=== PATIENT | male | born 1960 | race Caucasian/White ===

== ENCOUNTER 2018-03-19 19:50 | Emergency (ER) | payer OTHER ==
[2018-03-19] MEDS ORDERED: LIDOCAINE 2% MPF 5 ML VIAL ONE ×2 (20:20→20:56)
[2018-03-19] MEDS ORDERED: ONDANSETRON 4 MG (ODT) TAB ONE ×2 (20:28→20:57)
[2018-03-19] MEDS ORDERED: ONDANSETRON 4 MG/2 ML VIAL ONE (20:28)
--- NOTE | 2018-03-19 21:03 | RAD REPORT ---
EXAM DESCRIPTION: RAD - Shoulder Left 2 View - 03/19/2018 8:57 pm CLINICAL HISTORY: DEFORMITY COMPARISON: No comparisons FINDINGS: The glenohumeral relationship is normal. No fracture or dislocation seen. AC joint alignme nt is normal.
[2018-03-19] MEDS ORDERED: DIAZEPAM 2 MG TABLET ONE (21:09)
--- NOTE | 2018-03-19 21:11 | ER ---
Nurse's Notes [facility] Name: Destin Benites Age: 57 yrs Sex: Male : 1960 Arrival Date: 03/19/2018 Time: 19:51 Bed 13 Private MD: Kana Ozuna Diagnosis: Dislocation of other parts of left shoulder girdle;Fall on same level from slipping, tripping and stumbling Presentation: 03/19 19:55 Presenting complaint: Patient states: He was on a wet deck and slipped and landed aj1 wrong, now he is having pain to the left shoulder. Deformity noted to left shoulder. Transition of care: patient was not received from another setting of care. Onset of symptoms was March 19, 2018. Risk Assessment: Do you want to hurt yourself or someone else? Patient reports no desire to harm self or others. Initial Sepsis Screen: Does the patient meet any 2 criteria? No. Patient's initial sepsis screen is negative. Does the patient have a suspected source of infection? No. Patient's initial sepsis screen is negative. Care prior to arrival: None. 19:55 Method Of Arrival: Ambulatory aj 19:55 Acuity: WILI 3 aj1 Triage Assessment: 20:01 General: Appears uncomfortable, Behavior is cooperative, appropriate for age. Pain: aj1 Complains of pain in anterior aspect of left shoulder and posterior aspect of left shoulder Pain currently is 10 out of 10 on a pain scale. Neuro: Level of Consciousness is awake, alert, obeys commands. Cardiovascular: Patient's skin is warm and dry. Respiratory: Airway is patent Respiratory effort is even, unlabored, Respiratory pattern is regular, symmetrical. Musculoskeletal: Range of motion: limited in left shoulder. 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 - Social history:: Smoking status: Patient uses tobacco products, smokes one pack cigarettes per day. - Ebola Screening: : Patient denies travel to an Ebola-affected area in the 21 days before illness onset. Screenin:13 Abuse screen: Denies threats or abuse. Denies injuries from another. Nutritional mg2 screening: No deficits noted. Tuberculosis screening: No symptoms or risk factors identified. Fall Risk Fall in past 12 months (25 points). Assessment: 20:14 General: Appears in no apparent distress. uncomfortable. Pain: Complains of pain in mg2 left shoulder and left arm and posterior aspect of left shoulder and anterior aspect of left shoulder Pain does not radiate. Neuro: Level of Consciousness is awake, alert, obeys commands, Oriented to person, place, time, situation. Cardiovascular: Capillary refill < 3 seconds Patient's skin is warm and dry. Respiratory: Airway is patent Respiratory effort is even, unlabored, Respiratory pattern is regular, symmetrical. GI: Reports nausea. : No signs and/or symptoms were reported regarding the genitourinary system. EENT: No signs and/or symptoms were reported regarding the EENT system. Derm: Skin is intact, Skin is pink, warm \T\ dry. normal. Musculoskeletal: Circulation, motion, and sensation intact. Musculoskeletal: Injury Description: Deformity sustained to left shoulder is protruding, was sustained 30-60 minutes ago. 21:27 Reassessment: Patient appears in no apparent distress at this time. Patient and/or mg2 family updated on plan of care and expected duration. Pain level reassessed. Patient is alert, oriented x 3, equal unlabored respirations, skin warm/dry/pink. manual reduction done by Nery. Vital Signs: 20:01 BP 133 / 98; Pulse 88; Resp 18; Temp 98.2(TE); Pulse Ox 96% on R/A; Weight 89.81 kg aj1 (R); Height 6 ft. 0 in. (182.88 cm) (R); Pain 10/10; 20:37 BP 138 / 96; Pulse 89; Resp 18; Pulse Ox 100% on R/A; Pain 10/10; mg2 20:01 Body Mass Index 26.85 (89.81 kg, 182.88 cm) aj1 ED Course: 19:51 Patient arrived in ED. ds1 19:51 Kana Ozuna MD is Private Physician. ds1 19:59 Triage completed. aj1 20:01 Arm band placed on. aj1 20:04 [facility] Dodge [facility]C [facility] snw 20:04 Rayray Trejo MD is Attending Physician. snw 20:13 Dale Walter, [place] is Primary Nurse. mg2 20:16 Patient has correct armband on for positive identification. Placed in gown. Bed in low mg2 position. Call light in reach. Door closed. 20:56 X-ray completed. Portable x-ray completed in exam room. Patient tolerated procedure la2 well. 20:57 Shoulder Left (2 View) XRAY In Process Unspecified. EDMS 21:10 Conor Warner MD is Referral Physician. snw 21:26 No provider procedures requiring assistance completed. Patient did not have IV access mg2 during this emergency room visit. 21:41 Shoulder immobilizer applied on left shoulder. mg2 Administered Medications: 21:07 Drug: Zofran 4 mg Route: PO; mg2 21:26 Follow up: Response: No adverse reaction; Nausea is decreased mg2 21:07 Drug: Lidocaine (2 %) 10 mg Route: Infiltration; mg2 21:26 Follow up: Response: No adverse reaction; Pain is decreased mg2 21:07 Drug: Valium 2 mg Route: PO; mg2 21:26 Follow up: Response: No adverse reaction; Medication administered at discharge. mg2 Outcome: 21:10 Discharge ordered by . snw 21:41 Discharged to home ambulatory, with family. mg2 21:41 Condition: stable 21:41 Discharge instructions given to patient, family, Instructed on discharge instructions, follow up and referral plans. medication usage, Demonstrated understanding of instructions, follow-up care, medications, Prescriptions given X 2. 21:42 Patient left the ED. mg2 Signatures: Dispatcher [employer] EDMI Katya Washington, RN RN aj1 Nery Dodge FNP-C [employer] D[employer]ER-Csnw Claudia Arthur ds1 Jayleen Smith la2 Dale Walter, [place] RN mg2
--- NOTE | 2018-03-19 21:11 | EDPHYS ---
Physician Documentation [facility] Name: Destin Benites Age: 57 yrs Sex: Male : 1960 Arrival Date: 03/19/2018 Time: 19:51 Bed 13 Private MD: Kana Ozuna ED Physician Rayray Trejo HPI: 03/19 20:50 This 57 yrs old Male presents to ER via Ambulatory with complaints of snw Shoulder Dislocation. 20:50 Onset: The symptoms/episode began/occurred suddenly, just prior to arrival. Associated snw signs and symptoms: Pertinent positives: The patient does not have any pertinent positive signs or symptoms associated with pediatric illness. Modifying factors: The patient symptoms are alleviated by remaining still. The patient has not experienced similar symptoms in the past. The patient has not recently seen a physician. 20:50 slipped on wet deck and fell to left shoulder. 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 - Social history:: Smoking status: Patient uses tobacco products, smokes one pack cigarettes per day. - Ebola Screening: : Patient denies travel to an Ebola-affected area in the 21 days before illness onset. ROS: 20:49 Constitutional: Negative for fever, chills, and weight loss, Eyes: Negative for injury, snw pain, redness, and discharge, ENT: Negative for injury, pain, and discharge, Neck: Negative for injury, pain, and swelling, Cardiovascular: Negative for chest pain, palpitations, and edema, Respiratory: Negative for shortness of breath, cough, wheezing, and pleuritic chest pain, Abdomen/GI: Negative for abdominal pain, nausea, vomiting, diarrhea, and constipation, Back: Negative for injury and pain, : Negative for injury, bleeding, discharge, and swelling, Skin: Negative for injury, rash, and discoloration, Neuro: Negative for headache, weakness, numbness, tingling, and seizure, Psych: Negative for depression, anxiety, suicide ideation, homicidal ideation, and hallucinations. 20:49 MS/extremity: Positive for injury or acute deformity, decreased range of motion, deformity, pain. Exam: 20:46 Constitutional: This is a well developed, well nourished patient who is awake, alert, snw and in no acute distress. 20:46 Eyes: Pupils equal round and reactive to light, extra-ocular motions intact. Lids and lashes normal. Conjunctiva and sclera are non-icteric and not injected. Cornea within normal limits. Periorbital areas with no swelling, redness, or edema. ENT: Nares patent. No nasal discharge, no septal abnormalities noted. Tympanic membranes are normal and external auditory canals are clear. Oropharynx with no redness, swelling, or masses, exudates, or evidence of obstruction, uvula midline. Mucous membranes moist. Neck: Trachea midline, no thyromegaly or masses palpated, and no cervical lymphadenopathy. Supple, full range of motion without nuchal rigidity, or vertebral point tenderness. No Meningismus. Chest/axilla: Normal chest wall appearance and motion. Nontender with no deformity. No lesions are appreciated. Cardiovascular: Regular rate and rhythm with a normal S1 and S2. No gallops, murmurs, or rubs. Normal PMI, no JVD. No pulse deficits. Respiratory: Lungs have equal breath sounds bilaterally, clear to auscultation and percussion. No rales, rhonchi or wheezes noted. No increased work of breathing, no retractions or nasal flaring. Abdomen/GI: Soft, non-tender, with normal bowel sounds. No distension or tympany. No guarding or rebound. No evidence of tenderness throughout. Back: No spinal tenderness. No costovertebral tenderness. Full range of motion. Neuro: Awake and alert, GCS 15, oriented to person, place, time, and situation. Cranial nerves II-XII grossly intact. Motor strength 5/5 in all extremities. Sensory grossly intact. Cerebellar exam normal. Normal gait. Psych: Awake, alert, with orientation to person, place and time. Behavior, mood, and affect are within normal limits. 20:46 Head/face: Noted is dusky coloration. 20:46 Musculoskeletal/extremity: Extremities: grossly normal except: noted in the left shoulder: decreased ROM, deformity, anterior dislocation. 20:46 Skin: Appearance: Color: dusky. 20:46 Neuro: Exam negative for acute changes. Vital Signs: 20:01 BP 133 / 98; Pulse 88; Resp 18; Temp 98.2(TE); Pulse Ox 96% on R/A; Weight 89.81 kg aj1 (R); Height 6 ft. 0 in. (182.88 cm) (R); Pain 10/10; 20:37 BP 138 / 96; Pulse 89; Resp 18; Pulse Ox 100% on R/A; Pain 10/10; mg2 20:01 Body Mass Index 26.85 (89.81 kg, 182.88 cm) aj1 Procedures: 20:47 Reduction: of the left shoulder, using manipulation, flexion, Immobilized with shoulder snw immobilizer. Patient tolerated well. Post reduction film - reveals normal alignment. 20:48 Nerve block: of left shoulder. Medication: Lidocaine 2% without epinephrine, Amount: 10 snw mls were injected, Effect: the patient's symptoms are improved, markedly, Performed by Nery JIN Patient tolerated well. MDM: 20:04 Patient medically screened. snw 21:11 Data reviewed: vital signs, nurses notes. Data interpreted: Pulse oximetry: on room air snw is 100 %. Interpretation: normal. Counseling: I had a detailed discussion with the patient and/or guardian regarding: the historical points, exam findings, and any diagnostic results supporting the discharge/admit diagnosis, the presence of at least one elevated blood pressure reading (>120/80) during this emergency department visit, radiology results, the need for outpatient follow up, to return to the emergency department if symptoms worsen or persist or if there are any questions or concerns that arise at home. Special discussion: I have referred the patient to see his PCP for further evaluation of high blood pressure. Based on the history and exam findings, there is no indication for further emergent testing or inpatient evaluation. I discussed with the patient/guardian the need to see the orthopedic surgeon for further evaluation of the symptoms. I discussed with the patient/guardian the need to see the primary care provider for further evaluation of the symptoms. 03/19 20:42 Order name: Shoulder Left (2 View) XRAY; Complete Time: 21:12 snw Administered Medications: 21:07 Drug: Zofran 4 mg Route: PO; mg2 21:26 Follow up: Response: No adverse reaction; Nausea is decreased mg2 21:07 Drug: Lidocaine (2 %) 10 mg Route: Infiltration; mg2 21:26 Follow up: Response: No adverse reaction; Pain is decreased mg2 21:07 Drug: Valium 2 mg Route: PO; mg2 21:26 Follow up: Response: No adverse reaction; Medication administered at discharge. mg2 Disposition: 03/20 03:00 Co-signature as Attending Physician, Rayray Trejo MD. rn Disposition: 03/19/18 21:10 Discharged to Home. Impression: Dislocation of other parts of left shoulder girdle, Fall on same level from slipping, tripping and stumbling. - Condition is Stable. - Discharge Instructions: Shoulder Dislocation, Head Injury, Adult, Fall Prevention in the Home. - Prescriptions for Diclofenac Sodium 75 mg Oral Tablet Sustained Release - take 1 tablet by ORAL route 2 times per day; 30 tablet. orphenadrine citrate 100 mg Oral Tablet Sustained Release - take 1 tablet by ORAL route 2 times per day As needed; 20 tablet. - Medication Reconciliation Form, Thank You Letter, Antibiotic Education, Prescription Opioid Use form. - Follow up: Conor Warner; When: 5 - 6 days; Reason: Recheck today's complaints, Continuance of care, Re-evaluation by your physician. Signatures: Dispatcher [employer] EDMS Katya Washington RN RN aj1 Nery Dodge, CERTIFIED LOW VISION THERAPIST-C CERTIFIED LOW VISION THERAPIST-Csnw Rayray Trejo MD MD rn Gardose, Michele, RN RN mg2 Corrections: (The following items were deleted from the chart) 03/19 21:42 21:10 03/19/2018 21:10 Discharged to Home. Impression: Dislocation of other parts of mg2 left shoulder girdle; Fall on same level from slipping, tripping and stumbling. Condition is Stable. Discharge Instructions: Shoulder Dislocation, Head Injury, Adult, Fall Prevention in the Home. Prescriptions for Diclofenac Sodium 75 mg Oral Tablet Sustained Release - take 1 tablet by ORAL route 2 times per day; 30 tablet, orphenadrine citrate 100 mg Oral Tablet Sustained Release - take 1 tablet by ORAL route 2 times per day As needed; 20 tablet. and Forms are Medication Reconciliation Form, Thank You Letter, Antibiotic Education, Prescription Opioid Use. Follow up: Conor Warner; When: 5 - 6 days; Reason: Recheck today's complaints, Continuance of care, Re-evaluation by your physician. snw
== END 2018-03-19 21:42 | disposition home or self-care (01) ==
LOC: ER 19:50
PROC: 0RSKXZZ Reposition Left Shoulder Joint, External Approach (ICD-10-PCS; principal; 2018-03-19)
DX: S43.395A Dislocation of other parts of left shoulder girdle, initial encounter (principal); I10 Essential (primary) hypertension; E78.5 Hyperlipidemia, unspecified; F17.210 Nicotine dependence, cigarettes, uncomplicated; W01.0XXA Fall on same level from slipping, tripping and stumbling without subsequent striking against object, initial encounter; Y93.9 Activity, unspecified; Y92.89 Other specified places as the place of occurrence of the external cause; Z88.5 Allergy status to narcotic agent
CPT/HCPCS: 99284; J2405

== ENCOUNTER 2018-03-30 17:04 | Emergency (ER) | payer OTHER ==
--- OUTSIDE RECORDS SUMMARY | 2018-03-30 17:06 | XMS REPORT ---
:1960 Author Organization [employer] Care Team Providers Name Role Phone Conor Warner Provider Role Unavailable Allergies, Adverse Reactions, Alerts Substance Reaction Event Type codeine Info Not Available Drug Allergy Problems Problem Type Condition Code Onset Dates Condition Status Problem Dislocation of left shoulder S43.005A Active joint, initial encounter Problem Acute pain of left shoulder M25.512 Active Assessment Acute pain of left shoulder M25.512 Active Assessment Dislocation of left shoulder S43.005A Active joint, initial encounter Medications Medication Code Code Instructions Start End Status Dosage System Date Date BuPROPion HCl [facility] 55880075383 150 MG Orally Active 1 tablet ER (Smoking Once a day in the Det) morning Meloxicam [facility] 02590684230 7.5 MG Orally Active 1 tablet Once a day Atorvastatin [facility] 61141676459 80 MG Orally Active 1 tablet Calcium Once a day Diclofenac [facility] 46896871468 75 MG Orally Active 1 tablet Sodium Twice a day with food or milk Orphenadrine [facility] [address]-77 100 MG Orally Active as Citrate ER directed Enalapril [facility] 07907555156 10 MG Orally Active 1 tablet Maleate Once a day Omeprazole [facility] [address]89-[address]906 20 MG Orally Active 1 tablet Magnesium Once a day Results No Known Results Summary Purpose [employer] Submission
[2018-03-30] MEDS ORDERED: DIAZEPAM 5 MG TABLET ONE ×2 (17:36→17:38)
--- NOTE | 2018-03-30 17:53 | RAD REPORT ---
EXAM DESCRIPTION: RAD - Shoulder Left 2 View - 03/30/2018 5:42 pm CLINICAL HISTORY: Pain;Deformity COMPARISON: Shoulder Left 2 View dated 03/19/2018 FINDINGS: The humeral head appears anteriorly dislocated relative to the glenoid. No fracture seen.
[2018-03-30] MEDS ORDERED: cloNIDine HCl 0.1 MG TAB ONE (18:27)
[2018-03-30] MEDS ORDERED: HYDROCODONE/APAP 5/325 MG TAB ONE (18:27)
--- NOTE | 2018-03-30 18:34 | ER ---
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 Patient was seen in this ER for same complaint 10 days ago. Shoulder reduced here. Transition of care: patient was not received from another setting of care. Onset of symptoms was March 30, 2018. Risk Assessment: Do you want to hurt yourself or someone else? Patient reports no desire to harm self or others. Initial Sepsis Screen: Does the patient meet any 2 criteria? No. Patient's initial sepsis screen is negative. Does the patient have a suspected source of infection? No. Patient's initial sepsis screen is negative. Care prior to arrival: None. 17:19 Method Of Arrival: Ambulatory 17:19 Acuity: WILI 3 aj Triage Assessment: 17:22 General: Appears in no apparent distress. uncomfortable, Behavior is calm, cooperative, aj appropriate for age. Pain: Complains of pain in anterior aspect of left shoulder and posterior aspect of left shoulder. Neuro: Level of Consciousness is awake, alert, obeys commands, Oriented to person, place, time, situation, Appropriate for age. Respiratory: Airway is patent Respiratory effort is even, unlabored, Respiratory pattern is regular, symmetrical. Derm: Skin is intact, is healthy with good turgor, Skin is pink, warm \T\ dry. normal. Musculoskeletal: Range of motion: limited in left shoulder Bony deformity noted of anterior aspect of left shoulder. Injury Description: Deformity sustained to anterior aspect of left shoulder. 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 - Social history:: Smoking status: Patient uses tobacco products, smokes one pack cigarettes per day. - Ebola Screening: : Patient negative for fever greater than or equal to 101.5 degrees Fahrenheit, and additional compatible Ebola Virus Disease symptoms Patient denies exposure to infectious person Patient denies travel to an Ebola-affected area in the 21 days before illness onset No symptoms or risks identified at this time. Screenin:30 Abuse screen: Denies threats or abuse. Denies injuries from another. Nutritional hb screening: No deficits noted. Tuberculosis screening: No symptoms or risk factors identified. Fall Risk None identified. Assessment: 17:30 General: Appears uncomfortable, Behavior is cooperative, anxious. Pain: Pain currently hb is 8 out of 10 on a pain scale. Neuro: Level of Consciousness is awake, alert, obeys commands, Oriented to person, place, time, situation. Cardiovascular: Heart tones S1 S2 present Capillary refill < 3 seconds Patient's skin is warm and dry. Respiratory: Airway is patent Trachea midline Respiratory effort is even, unlabored, Respiratory pattern is regular, symmetrical, Breath sounds are clear bilaterally. GI: No signs and/or symptoms were reported involving the gastrointestinal system. : No signs and/or symptoms were reported regarding the genitourinary system. EENT: No signs and/or symptoms were reported regarding the EENT system. Derm: No signs and/or symptoms reported regarding the dermatologic system. Skin is intact, is healthy with good turgor, Skin is pink, warm \T\ dry. Musculoskeletal: Range of motion: limited in left shoulder. 18:30 Reassessment: Patient appears in no apparent distress at this time. Patient and/or hb family updated on plan of care and expected duration. Pain level reassessed. Patient is alert, oriented x 3, equal unlabored respirations, skin warm/dry/pink. Vital Signs: 17:22 BP 172 / 119; Pulse 97; Resp 20; Temp 97.0; Pulse Ox 98% on R/A; Weight 89.81 kg; aj Height 6 ft. 0 in. (182.88 cm); 18:00 BP 178 / 108; Pulse 89; Resp 18; Pulse Ox 100% on R/A; hb 17:22 Body Mass Index 26.85 (89.81 kg, 182.88 cm) ED Course: 17:06 Patient arrived in ED. rg4 17:07 Kana Ozuna MD is Private Physician. rg4 17:18 Nery Dodge [facility]C [facility]. snw 17:18 Raul Paige MD is Attending Physician. snw 17:19 Reshma Menchaca, RN is Primary Nurse. hb 17:21 Triage completed. aj 17:22 Arm band placed on right wrist. Patient placed in an exam room. aj 17:30 Patient has correct armband on for positive identification. Bed in low position. Call light in reach. Side rails up X 1. 17:39 X-ray completed. Portable x-ray completed in exam room. Patient tolerated procedure az well. 17:40 Shoulder Left (2 View) XRAY In Process Unspecified. EDMS 18:27 X-ray completed. Portable x-ray completed in exam room. Patient tolerated procedure az well. 18:28 Shoulder Left (2 View) XRAY In Process Unspecified. EDMS 18:33 Conor Warner MD is Referral Physician. snw 18:53 No provider procedures requiring assistance completed. IV discontinued, intact, hb bleeding controlled, No redness/swelling at site. Pressure dressing applied. Administered Medications: 17:35 Drug: Valium 5 mg Route: PO; hb 18:31 Follow up: Response: No adverse reaction hb 18:25 Drug: cloNIDine 0.1 mg Route: PO; hb 18:52 Follow up: Response: No adverse reaction hb 18:25 Drug: Combs 5 mg-325 mg 1 tabs Route: PO; hb 18:52 Follow up: Response: No adverse reaction hb Outcome: 18:33 Discharge ordered by . snw 18:53 Discharged to home ambulatory, with significant other. hb 18:53 Condition: stable 18:53 Discharge instructions given to patient, significant other, Instructed on discharge instructions, follow up and referral plans. medication usage, Demonstrated understanding of instructions, follow-up care, medications, Prescriptions given X 2. 18:54 Patient left the ED. 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 Patient was seen in this ER for same complaint on Wednesday. Shoulder reduced here aj 18:31 14:35 Valium 5 mg PO hb hb 18:54 18:53 Discharge instructions given to patient, significant other, Instructed on hb discharge instructions, follow up and referral plans. medication usage, Demonstrated understanding of instructions, follow-up care, medications, Prescriptions given X 1, hb
--- NOTE | 2018-03-30 18:34 | EDPHYS ---
Physician Documentation [facility] Name: Destin Benites Age: 57 yrs Sex: Male : 1960 Arrival Date: 03/30/2018 Time: 17:06 Bed 3 Private MD: Kana Ozuna ED Physician Raul Paige HPI: 03/30 18:10 This 57 yrs old Male presents to ER via Ambulatory with complaints of snw Shoulder Injury. 18:10 The patient or guardian complains of decreased range of motion, deformity, tenderness. snw left shoulder. Context: The problem was sustained outdoors, resulted from closing truck door, The patient experiences decreased range of motion, The patient notes a deformity. Onset: The symptoms/episode began/occurred suddenly, just prior to arrival. Associated signs and symptoms: The patient has no apparent associated signs or symptoms. Severity of symptoms: At their worst the symptoms were moderate. Treatment prior to arrival includes: no previous treatment. The patient has experienced a previous episode, last month. The patient has been recently seen by a physician: Dr. Warner rehab exercises for shoulder. 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 - Social history:: Smoking status: Patient uses tobacco products, smokes one pack cigarettes per day. - Ebola Screening: : Patient negative for fever greater than or equal to 101.5 degrees Fahrenheit, and additional compatible Ebola Virus Disease symptoms Patient denies exposure to infectious person Patient denies travel to an Ebola-affected area in the 21 days before illness onset No symptoms or risks identified at this time. ROS: 18:07 Constitutional: Negative for fever, chills, and weight loss, Eyes: Negative for injury, snw pain, redness, and discharge, ENT: Negative for injury, pain, and discharge, Neck: Negative for injury, pain, and swelling, Cardiovascular: Negative for chest pain, palpitations, and edema, Respiratory: Negative for shortness of breath, cough, wheezing, and pleuritic chest pain, Abdomen/GI: Negative for abdominal pain, nausea, vomiting, diarrhea, and constipation, Back: Negative for injury and pain, : Negative for injury, bleeding, discharge, and swelling, Skin: Negative for injury, rash, and discoloration, Neuro: Negative for headache, weakness, numbness, tingling, and seizure. 18:07 MS/extremity: Positive for previous left shoulder dislocation, went to close truck door and shoulder popped out again. Exam: 18:07 Constitutional: This is a well developed, well nourished patient who is awake, alert, snw and in no acute distress. Head/Face: Normocephalic, atraumatic. Eyes: Pupils equal round and reactive to light, extra-ocular motions intact. Lids and lashes normal. Conjunctiva and sclera are non-icteric and not injected. Cornea within normal limits. Periorbital areas with no swelling, redness, or edema. ENT: Nares patent. No nasal discharge, no septal abnormalities noted. Tympanic membranes are normal and external auditory canals are clear. Oropharynx with no redness, swelling, or masses, exudates, or evidence of obstruction, uvula midline. Mucous membranes moist. Neck: Trachea midline, no thyromegaly or masses palpated, and no cervical lymphadenopathy. Supple, full range of motion without nuchal rigidity, or vertebral point tenderness. No Meningismus. Chest/axilla: Normal chest wall appearance and motion. Nontender with no deformity. No lesions are appreciated. Cardiovascular: Regular rate and rhythm with a normal S1 and S2. No gallops, murmurs, or rubs. Normal PMI, no JVD. No pulse deficits. Respiratory: Lungs have equal breath sounds bilaterally, clear to auscultation and percussion. No rales, rhonchi or wheezes noted. No increased work of breathing, no retractions or nasal flaring. Abdomen/GI: Soft, non-tender, with normal bowel sounds. No distension or tympany. No guarding or rebound. No evidence of tenderness throughout. Back: No spinal tenderness. No costovertebral tenderness. Full range of motion. Skin: Warm, dry with normal turgor. Normal color with no rashes, no lesions, and no evidence of cellulitis. left posterior arm with ecchymosis from previous reduction Neuro: Awake and alert, GCS 15, oriented to person, place, time, and situation. Cranial nerves II-XII grossly intact. Motor strength 5/5 in all extremities. Sensory grossly intact. Cerebellar exam normal. Normal gait. Psych: Awake, alert, with orientation to person, place and time. Behavior, mood, and affect are within normal limits. 18:07 Musculoskeletal/extremity: Extremities: grossly normal except: noted in the left shoulder: decreased ROM, deformity, pain, Circulation is intact in all extremities. Sensation intact. Compartment Syndrome exam of affected extremity: is normal. Vital Signs: 17:22 BP 172 / 119; Pulse 97; Resp 20; Temp 97.0; Pulse Ox 98% on R/A; Weight 89.81 kg; aj Height 6 ft. 0 in. (182.88 cm); 18:00 BP 178 / 108; Pulse 89; Resp 18; Pulse Ox 100% on R/A; hb 17:22 Body Mass Index 26.85 (89.81 kg, 182.88 cm) aj Procedures: 18:20 Reduction: of the left shoulder, using traction, Immobilized with (pt brought his own). snw Patient tolerated well. MDM: 17:18 Patient medically screened. snw 18:18 Data reviewed: vital signs, nurses notes. Data interpreted: Pulse oximetry: on room air snw is 100 %. Interpretation: normal. Counseling: I had a detailed discussion with the patient and/or guardian regarding: the historical points, exam findings, and any diagnostic results supporting the discharge/admit diagnosis, radiology results, the need for outpatient follow up, to return to the emergency department if symptoms worsen or persist or if there are any questions or concerns that arise at home. Response to treatment: the patient's symptoms have markedly improved after treatment, and as a result, I will discharge patient, administer pain medication, recommend pt F/u Dr. Warner more urgently than scheduled appt in 4 weeks. 03/30 17:23 Order name: Shoulder Left (2 View) XRAY; Complete Time: 18:11 snw 03/30 18:18 Order name: Shoulder Left (2 View) XRAY; Complete Time: 18:53 snw 03/30 17:24 Order name: NPO; Complete Time: 17:30 snw Administered Medications: 17:35 Drug: Valium 5 mg Route: PO; hb 18:31 Follow up: Response: No adverse reaction hb 18:25 Drug: cloNIDine 0.1 mg Route: PO; hb 18:52 Follow up: Response: No adverse reaction hb 18:25 Drug: Lockwood 5 mg-325 mg 1 tabs Route: PO; hb 18:52 Follow up: Response: No adverse reaction hb Disposition: 19:09 Co-signature as Attending Physician, Raul Paige MD I agree with the assessment and kdr plan of care. Disposition: 18 18:33 Discharged to Home. Impression: Recurrent dislocation, left shoulder, Essential (primary) hypertension. - Condition is Stable. - Discharge Instructions: Shoulder Dislocation, Hypertension, How to Use a Shoulder Immobilizer. - Prescriptions for Diclofenac Sodium 75 mg Oral Tablet Sustained Release - take 1 tablet by ORAL route 2 times per day; 30 tablet. orphenadrine citrate 100 mg Oral Tablet Sustained Release - take 1 tablet by ORAL route 2 times per day As needed; 20 tablet. - Medication Reconciliation Form, Thank You Letter, Antibiotic Education, Prescription Opioid Use form. - Follow up: Conor Warner MD; When: 1 - 2 days; Reason: Recheck today's complaints, Continuance of care, Re-evaluation by your physician. Follow up: Emergency Department; When: As needed; Reason: Worsening of condition. Signatures: Dispatcher [employer] Jennifer Duque RN RN aj Rittger, Kevin, MD MD kdr Therrien, Shelly, [employer] Reshma Menchaca RN RN Corrections: (The following items were deleted from the chart) 18:10 18:07 Constitutional: This is a well developed, well nourished patient who is awake, snw alert, and in no acute distress. Head/Face: Normocephalic, atraumatic. Eyes: Pupils equal round and reactive to light, extra-ocular motions intact. Lids and lashes normal. Conjunctiva and sclera are non-icteric and not injected. Cornea within normal limits. Periorbital areas with no swelling, redness, or edema. ENT: Nares patent. No nasal discharge, no septal abnormalities noted. Tympanic membranes are normal and external auditory canals are clear. Oropharynx with no redness, swelling, or masses, exudates, or evidence of obstruction, uvula midline. Mucous membranes moist. Neck: Trachea midline, no thyromegaly or masses palpated, and no cervical lymphadenopathy. Supple, full range of motion without nuchal rigidity, or vertebral point tenderness. No Meningismus. Chest/axilla: Normal chest wall appearance and motion. Nontender with no deformity. No lesions are appreciated. Cardiovascular: Regular rate and rhythm with a normal S1 and S2. No gallops, murmurs, or rubs. Normal PMI, no JVD. No pulse deficits. Respiratory: Lungs have equal breath sounds bilaterally, clear to auscultation and percussion. No rales, rhonchi or wheezes noted. No increased work of breathing, no retractions or nasal flaring. Abdomen/GI: Soft, non-tender, with normal bowel sounds. No distension or tympany. No guarding or rebound. No evidence of tenderness throughout. Back: No spinal tenderness. No costovertebral tenderness. Full range of motion. Skin: Warm, dry with normal turgor. Normal color with no rashes, no lesions, and no evidence of cellulitis. Neuro: Awake and alert, GCS 15, oriented to person, place, time, and situation. Cranial nerves II-XII grossly intact. Motor strength 5/5 in all extremities. Sensory grossly intact. Cerebellar exam normal. Normal gait. Psych: Awake, alert, with orientation to person, place and time. Behavior, mood, and affect are within normal limits. snw 18:35 18:33 03/30/2018 18:33 Discharged to Home. Impression: Recurrent dislocation, left snw shoulder. Condition is Stable. Forms are Medication Reconciliation Form, Thank You Letter, Antibiotic Education, Prescription Opioid Use. Follow up: Conor Warner; When: 1 - 2 days; Reason: Recheck today's complaints, Continuance of care, Re-evaluation by your physician. snw 18:54 18:35 03/30/2018 18:33 Discharged to Home. Impression: Recurrent dislocation, left hb shoulder; Essential (primary) hypertension. Condition is Stable. Discharge Instructions: Shoulder Dislocation, Hypertension, How to Use a Shoulder Immobilizer. Prescriptions for Diclofenac Sodium 75 mg Oral Tablet Sustained Release - take 1 tablet by ORAL route 2 times per day; 30 tablet, orphenadrine citrate 100 mg Oral Tablet Sustained Release - take 1 tablet by ORAL route 2 times per day As needed; 20 tablet. and Forms are Medication Reconciliation Form, Thank You Letter, Antibiotic Education, Prescription Opioid Use. Follow up: Conor Warner; When: 1 - 2 days; Reason: Recheck today's complaints, Continuance of care, Re-evaluation by your physician. Follow up: Emergency Department; When: As needed; Reason: Worsening of condition. snw
--- NOTE | 2018-03-30 18:51 | RAD REPORT ---
EXAM DESCRIPTION: RAD - Shoulder Left 2 View - 03/30/2018 6:31 pm CLINICAL HISTORY: post reduction Shoulder pain COMPARISON: Shoulder Left 2 View dated 03/30/2018 FINDINGS: The previously noted shoulder dislocation appears to have been reduced. A fracture is not seen.
== END 2018-03-30 18:54 | disposition home or self-care (01) ==
LOC: ER 17:04
PROC: 0RSKXZZ Reposition Left Shoulder Joint, External Approach (ICD-10-PCS; principal; 2018-03-30)
DX: M24.412 Recurrent dislocation, left shoulder (principal); I10 Essential (primary) hypertension; E78.5 Hyperlipidemia, unspecified; F17.290 Nicotine dependence, other tobacco product, uncomplicated; Z88.5 Allergy status to narcotic agent
CPT/HCPCS: 99283